=== PATIENT | female | born 1955 | race African-American/Black ===

== ENCOUNTER 2021-01-30 23:16 | Emergency (ER) | payer OTHER ==
[~2021-01-30] VITALS: Ht 165.1 cm; Wt 100.0 kg
[2021-01-30] MEDS ORDERED: SIMV-259 PO (23:27)
[2021-01-30] MEDS ORDERED: CALC-1038 PO (23:27)
[2021-01-30] MEDS ORDERED: AMLO-257 PO (23:27)
[2021-01-30] MEDS ORDERED: LOSA25TA21 PO (23:27)
[2021-01-31] MEDS ORDERED: ACETAMINOPHEN 500 MG TABLET PO ONE (01:15)
[2021-01-31 02:28] VITALS: BP 135/69
== END 2021-01-31 02:30 | disposition home or self-care (01) ==
LOC: EMS 23:17
DX: M17.11 Unilateral primary osteoarthritis, right knee (principal); Z79.899 Other long term (current) drug therapy
CPT/HCPCS: 29530; 99283